=== PATIENT | female | born 1945 | race Caucasian/White ===

== ENCOUNTER 2021-01-08 05:45 | Day surgery (SDC) | payer OTHER ==
[2021-01-04 14:32] LABS: Absolute Lymphocytes (CBC) 2.2 K/uL (0.7-4.9); Hematocrit 40.2 % (36.0-45.0); Lymphocytes % 30.1 % (15.3-44.8); MPV 7.9 fL (7.6-11.3); RBC Red Blood Cell Count 4.57 M/uL (3.86-4.86)
[2021-01-04 14:37] LABS: Protime INR 0.99
[2021-01-04 14:45] LABS: Potassium 4.5 mmol/L (3.5-5.1)
--- NOTE | 2021-01-04 14:56 | RAD REPORT ---
EXAM DESCRIPTION: RAD - Chest Pa And Lat (2 Views) - 01/04/2021 2:26 pm CLINICAL HISTORY: preopany rotator cuff surgery, history of hypertension COMPARISON: None TECHNIQUE: Frontal and lateral views of the chest were obtained. FINDINGS: The lungs are clear. No failure or volume overload. Heart size is normal and central vasc ulature is within normal limits. No pleural effusion or pneumothorax seen. No acute bony finding no doug. No aortic abnormality. IMPRESSION: No acute cardiopulmonary process.
[2021-01-08] MEDS ORDERED: CEFAZOLIN/SWI 1gm 1 GM/10 ML SYR ONE (06:24)
[2021-01-08] MEDS ORDERED: Ringers Lactate 1,000 ML IV ONE ×2 (06:24→07:47)
[2021-01-08] MEDS ORDERED: dexAMETHasone 10 MG/ML VIAL ONE ×2 (06:46→07:41)
[2021-01-08] MEDS ORDERED: ROPLVACAINE HCL 40 ML ONE (06:46)
[2021-01-08] MEDS ORDERED: NS 0.9% VIAL 10 ML ONE (06:46)
[2021-01-08] MEDS ORDERED: MIDAZOLAM HCL 2 MG/2 ML INJ ONE (06:46)
[2021-01-08] MEDS ORDERED: LIDOCAINE 1% MPF 5 ML VIAL ONE (06:46)
[2021-01-08] MEDS ORDERED: FENTANYL CITR 100 MCG/2 ML ONE (06:46)
[2021-01-08] MEDS ORDERED: EPINEPHRINE/PF 1 MG/ML AMP ONE (07:17)
[2021-01-08] MEDS ORDERED: KETOROLAC 30 MG/ML INJ ONE (07:41)
[2021-01-08] MEDS ORDERED: propofoL 200 MG/20 ML VIAL IV ONE (07:41)
[2021-01-08] MEDS ORDERED: ROCURONIUM 50 MG/5 ML VIAL IV ONE (07:42)
[2021-01-08] MEDS ORDERED: ONDANSETRON 4 MG/2 ML VIAL ONE (07:42)
[2021-01-08] MEDS ORDERED: LIDOCAINE 2% MPF 5 ML VIAL ONE (07:42)
[2021-01-08] MEDS ORDERED: GLYCOPYRROLATE 0.2 MG/ML SYR ONE (08:22)
--- NOTE | 2021-01-08 09:56 | P.BOP ---
Preoperative diagnosis: left rotator cuff tear, bicipital tenosynovitis, impingement syndrome Postoperative diagnosis: same, left biceps tendon autorupture Primary procedure: left shoulder arthroscopic rotator cuff repair Secondary procedure: left shoulder arthroscopic superior labrum debridement Other procedure(s): left shoulder arthroscopic subacromial decompression Estimated blood loss: 10 cc Specimen: none Findings: see dictation Anesthesia: General Complications: None Implants: 1- 5.5 mm arthrex corkscrew, 2 -4.75 mm Arthrex swivelocks Fluids & blood products: per anesthesia record Transferred to: Recovery Room Condition: Good
--- NOTE | 2021-01-08 10:19 | RAD REPORT ---
EXAM DESCRIPTION: RAD - Shoulder 1 View - 01/08/2021 10:13 am CLINICAL HISTORY: S/P L SHOULDER ROTATOR CUFF REPAIR COMPARISON: Shoulder Left Wo Cont dated 08/12/2020 FINDINGS: Frontal projection of the left shoulder is submitted after surgery. Mild soft tissue swell ing is evident. No unexpected postsurgical finding.
[2021-01-08 10:51] VITALS: TEMP 97
[2021-01-08] MEDS ORDERED: HYDROCODONE/APAP 7.5/325 MG TAB ONE (10:57)
[2021-01-08 11:44] VITALS: BP 112/48; O2SAT 96
--- NOTE | 2021-01-08 22:12 | OP ---
Date of Procedure: 01/08/2021 Surgeon: Leonard Valerio MD Preoperative Diagnoses: 1.Left shoulder rotator cuff tear. 2.Left shoulder bicipital tenosynovitis, left shoulder. Postoperative Diagnoses: 1.Left shoulder rotator cuff tear. 2.Left shoulder bicipital tenosynovitis, left shoulder. Procedure Performed: 1.Left shoulder arthroscopic rotator cuff repair. 2.Left shoulder arthroscopic superior labral debridement with biceps tendon anchor debridement. 3.Left shoulder arthroscopic subacromial decompression. Anesthesia: General endotracheal. Fluids: Per Anesthesia record. Estimated Blood Loss: 10 cc. Complications: None. Implants: 1.One 5.5 mm Arthrex corkscrew. 2.Two 4.75 mm Arthrex SwiveLock. Indication For Procedure: Brendan is a 75-year-old female who presented to my clinic with signs, sympt oms and MRI findings consistent with left shoulder rotator cuff tear. The patient failed conservativ e treatment measures and had continued pain that interfere with her activities of daily living. lorraine th risks and benefits associated with operative and nonoperative treatment. She expressed understand ing and elected to proceed with operative treatment. Description Of Procedure: After informed consent was obtained, the patient was identified in the pre operative holding area. The left upper extremity was marked. The patient was then taken to PACU whe re she underwent an interscalene block to her left upper extremity performed by Anesthesia. She was then transferred to the operating room, transferred to the operating table in supine fashion and plac ed under general endotracheal anesthesia. She was then placed in the beach chair position with her e xtremities well padded. The left upper extremity was then examined. The patient had full range of m otion with no instability of her left shoulder. The left upper extremity was then prepped and draped in usual sterile fashion. A time-out was initiated and correct patient and procedure were confirmed and identified. The patient did receive her preoperative prophylactic antibiotics. A spinal needle was introduced into the left shoulder joint via the posterior portal position. Shoulder was injecte d with 30 cc of normal saline to distend the capsule followed by creating a posterior portal with 11 blade and arthroscope was brought in via the posterior portal. Under direct visualization, the anter ior portal was created and a cannula was placed. A diagnostic arthroscopy was performed. The patien t was noted to have intact subscapularis. She was noted to also have mild rupture of her biceps tend on with the biceps tendon stump noted. Arthroscopic shaver was then used to debride the stump of the biceps tendon as well as superior labrum. The superior labrum as well as anterior and posterior lab rum were found to be stable to probe. There were no loose bodies found within the axillary gutter. There were some mild chondromalacia changes noted of the humeral head and glenoid surface. There was noted to be a full-thickness tear of the supraspinatus tendon. A lateral portal was created using a spinal needle followed by placing the obturator into the joint with full-thickness supraspinatus tea r. The undersurface of the supraspinatus was then debrided using an arthroscopic shaver to freshen u p the tissue as well as create a bleeding bony bed at the greater tuberosity of the supraspinatus rene tprint. The arthroscope was then brought into the subacromial space and a subacromial bursectomy was performed. The rotator cuff tear was identified. A spinal needle was then introduced lateral to th e acromion and a 5.5 mm Arthrex corkscrew was placed for medial row fixation. The double loaded sutu re anchor was then used to pass sutures through the torn rotator cuff tendon in the anterior-posterio r fashion. The medial row sutures were then tied in a horizontal mattress fashion for medial row fix ation. There was good overall reduction of the supraspinatus onto the greater tuberosity. The sutur es were then crisscrossed and lateral 4.75 mm Arthrex SwiveLock anchor was placed for increased surfa ce area of the repair. There was good overall reduction of the supraspinatus rotator cuff tear. Rem aining sutures were then cut. Next, attention was taken down to subacromial decompression. Arthrosc opic radiofrequency ablator was then used to debride the soft tissue of the undersurface of acromion and an arthroscopic tono was then used to perform acromioplasty and to complete the subacromial decom pression. Arthroscopic instruments were then removed without complication. Subcutaneous tissues wer e approximated using 2-0 Vicryl. Skin was approximated using 3-0 Monocryl. Sterile dressings were a pplied. The patient was awakened, placed in a shoulder immobilizer, transferred to PACU in stable co ndition. Postoperative Plan: She will be nonweightbearing of left upper extremity. She will follow Physical Therapy for medium rotator cuff repair protocol at 4 weeks postop. OLLIE/FARZANEH Voice ID: [id number] Report ID: [id number]
== END 2021-01-08 11:40 | disposition home or self-care (01) ==
LOC: OR 05:45
PROVIDERS: ATTEND Orthopaedic Surgery Sports Medicine
PROC: 0RHK44Z Insertion of Internal Fixation Device into Left Shoulder Joint, Percutaneous Endoscopic Approach (ICD-10-PCS; 2021-01-08)
PROC: 0RNK4ZZ Release Left Shoulder Joint, Percutaneous Endoscopic Approach (ICD-10-PCS; 2021-01-08)
PROC: 0LQ24ZZ Repair Left Shoulder Tendon, Percutaneous Endoscopic Approach (ICD-10-PCS; principal; 2021-01-08 07:30)
DX: M75.102 Unspecified rotator cuff tear or rupture of left shoulder, not specified as traumatic (principal); M65.812 Other synovitis and tenosynovitis, left shoulder; Z20.822 Contact with and (suspected) exposure to COVID-19
CPT/HCPCS: 85025; 80048; 36415; 85610; 85730; 71046; 73020; 29827; 29826; U0002; J2704; J0171; J2250; J3010; J1100 ×2; J2795; J0690; J7120 ×2; J2405

== ENCOUNTER 2021-11-01 06:33 | Day surgery (SDC) | payer OTHER ==
[2021-10-28 11:53] LABS: Absolute Lymphocytes (CBC) 2.2 K/uL (0.7-4.9); Hematocrit 40.1 % (36.0-45.0); Lymphocytes % 35.2 % (15.3-44.8); MPV 7.4 fL (7.6-11.3); RBC Red Blood Cell Count 4.52 M/uL (3.86-4.86)
[2021-10-28 12:19] LABS: Potassium 4.2 mmol/L (3.5-5.1)
[2021-10-28 12:37] LABS: SARS-COV-2 RT PCR NEGATIVE (NEGATIVE)
[2021-11-01] MEDS ORDERED: Ringers Lactate 1,000 ML IV ONE ×2 (06:40→08:36)
[2021-11-01] MEDS ORDERED: CEFAZOLIN/NS 1gm 1 GM/50 ML BAG ONE (06:41)
[2021-11-01] MEDS ORDERED: FENTANYL CITR 250 MCG/5 ML ONE (06:49)
[2021-11-01] MEDS ORDERED: propofoL 200 MG/20 ML VIAL IV ONE (06:49)
[2021-11-01] MEDS ORDERED: LIDOCAINE 2% MPF 5 ML VIAL ONE (06:49)
[2021-11-01] MEDS ORDERED: GLYCOPYRROLATE 0.2 MG/ML SYR ONE ×2 (06:49→08:44)
[2021-11-01] MEDS ORDERED: ROCURONIUM 50 MG/5 ML VIAL IV ONE (06:49)
[2021-11-01] MEDS ORDERED: MIDAZOLAM HCL 2 MG/2 ML INJ ONE (06:50)
[2021-11-01] MEDS ORDERED: ONDANSETRON 4 MG/2 ML VIAL ONE (06:52)
[2021-11-01] MEDS ORDERED: CELECOXIB 100 MG CAPSULE PO ONE (07:05)
[2021-11-01] MEDS ORDERED: ACETAMINOPHEN 500 MG TAB PO ONE (07:05)
[2021-11-01] MEDS ORDERED: ACETAMINOPHEN 500 MG TAB ONE (07:08)
[2021-11-01] MEDS ORDERED: CELECOXIB 100 MG CAPSULE ONE (07:08)
[2021-11-01] MEDS ORDERED: dexAMETHasone 10 MG/ML VIAL ONE (07:43)
[2021-11-01] MEDS ORDERED: Phenylephrine HCl 10 MG/ML 1 ML VIAL ONE (08:01)
[2021-11-01] MEDS: THROMBIN 5000 UNITS/VIAL TOP ONE ×2 (08:20→08:26)
[2021-11-01] MEDS: BUPIVACAINE 0.25% PF 10 ML VIAL ONE ×2 (08:25→08:26)
[2021-11-01] MEDS ORDERED: EPHEDRINE SULF 50 MG/ML VIAL ONE (08:26)
[2021-11-01] MEDS ORDERED: NEOSTIGMINE 1 MG/ML -5 ML ONE (08:44)
--- NOTE | 2021-11-01 09:19 | P.OP ---
Property And Supply Officer: LUKE Damian Preoperative diagnosis: L3-L4 lumbar stenosis Postoperative diagnosis: Same Primary procedure: L3-L4 lumbar decompression Secondary procedure: Use of operative microscope for microsurgical dissection Anesthesia: GETA Estimated blood loss: less than 25 cc Operative Technique: Indication for procedure: Ms. Montano is a 76-year-old female presenting to our clinic with complaints of severe back pain with radiation down her right lower extremity. She was worked up and found to have a synovial cyst at L3-4 causing severe stenosis. The patient felt improved conservative care and requested surgical intervention. The risk and benefits of the procedure were explained to patient and informed consent was obtained. Procedure in detail: Ms. Montano was identified in the preoperative holding area and brought back to the operative room. She was anesthetized by general endotracheal esthesia and turned prone onto a Matthieu frame. Her back was prepped and draped in the usual sterile fashion. A timeout was performed and all members of the surgical team were in agreement upon the patient and the procedure. Fluoroscopy was brought into got a midline incision extending from L3-L4. The incision was carried down through subcutaneous tissue and the deep fascia was divided. We then elevated the paraspinal musculature off of the spinous processes. Fluoroscopic imaging was then used to confirm our position. The microscope was positioned. The interspinous ligament was removed between the L3 and L4 spinous processes using a rongeur. The L3 spinous process was excised and a partial laminectomy was performed at L3 using a high-speed bur. The ligamentum flavum was excised using Kerrison rongeurs. We then exposed the synovial cyst on the right-hand side and created a plane between the thecal sac and the cyst with a ball probe. The cyst was then excised with Kerrison rongeurs. After satisfactory decompression the ball probe was passed cranially and caudally and the thecal sac was free. The lateral recesses were free. We then irrigated the wound with saline and reapproximated the fascia with #1 Vicryl. We then infiltrated the paraspinal musculature with half percent Marcaine. The subcutaneous tissue was reapproximated with 2-0 Vicryl followed by Monocryl closure of the subcuticular layer and application of Dermabond. The patient drapes were then removed and she was turned supine back onto the hospital bed extubated and taken to PACU in stable condition Complications: None Transferred to: Recovery Room Condition: Good
[2021-11-01] MEDS: HYDROMORPHONE HCL 1 MG/ML INJ ONE ×2 (09:32→09:37)
--- NOTE | 2021-11-01 09:51 | RAD REPORT ---
EXAM DESCRIPTION: RAD - Fluoroscopy >1 Hr - 11/01/2021 9:42 am CLINICAL HISTORY: L3-L4 DECOMPRESSION COMPARISON: No comparisons FINDINGS: Fluoroscopy time 0.1 minutes
[2021-11-01] MEDS ORDERED: HYDROCODONE/APAP 5/325 MG TAB ONE (11:19)
--- NOTE | 2021-11-01 11:37 | EKG ---
Test Date: 2021-10-28 Test Time: 11:33:47 Geothermal Operating Engineer: JACLYN MEASUREMENT RESULTS: Intervals: Rate: 88 IA: 192 QRSD: 82 QT: 364 QTc: 440 [place]: P: 78 IA: 192 QRS: 15 T: 56 INTERPRETIVE STATEMENTS: Normal sinus rhythm Low voltage QRS Borderline ECG Compared to ECG 09/22/2015 11:09:25 Low QRS voltage now present Sinus tachycardia no longer present Myocardial infarct finding no longer present Electronically Signed On 11-01-21 11:31:03 CREDIT CONTROL ASSISTANT by Shiva Bay
[2021-11-01 12:07] VITALS: TEMP 97.4
[2021-11-01 12:09] VITALS: BP 115/52; O2SAT 98
== END 2021-11-01 12:00 | disposition home or self-care (01) ==
LOC: OR 06:33
PROVIDERS: ATTEND Orthopaedic Surgery
PROC: 00NY0ZZ Release Lumbar Spinal Cord, Open Approach (ICD-10-PCS; principal; 2021-11-01 07:30)
DX: M48.062 Spinal stenosis, lumbar region with neurogenic claudication (principal); Z20.822 Contact with and (suspected) exposure to COVID-19
CPT/HCPCS: 93005; 85025; 80048; 36415; 0240U; 63005; J2704; J2370; J2250; J3010; J1100; J1170; J2710; J0690; J7120 ×2; J2405